=== PATIENT | female | born 1935 | race African-American/Black ===

== ENCOUNTER 2017-04-28 09:42 | Observation (INO) ==
[2017-04-28] MEDS ORDERED: DILTIAZEM 50 MG/10 ML VIAL IV STA (09:50)
[2017-04-28] MEDS ORDERED: DILTIAZEM INJ 100 MG in SODIUM CHLORIDE 0.9% 100 ML IV SCH (10:00)
--- NOTE | 2017-04-28 10:02 | Emergency Department Note ---
Slim Brar Brooke, am scribing for, and in the presence of, Atul Boogie MD 09:57 . Chuyita Brar James D, MD, personally performed the services described in this documentation, ascribed by Wilda Smalls in my presence, and it is both accurate and complete . Arrival - Arrival Limitations: No Limitations Source: Patient, Family (Son), EMS, RN Notes Reviewed Time Seen by Provider: 04/28/17 09:44 - History of Present Illness HPI Narrative: Patient is a 81 year old female brought into the ED by EMS, from dialysis, with c/o tachycardia. Patient was receiving her dialysis treatment when she started having chest pain. The nurses called EMS to bring her to the ED for the tachycardia. Patient says she is no longer having chest pain. She also denies having shortness or breath or any other pain. She says Dr. Acosta took her off of her heart medication. She says "it's been a while" since she was taken off of the medication. She is unable to recall the name of the medication but says she did take it once daily. Patient had been receiving her dialysis treatment for "42 minutes" before this happened. Her Primary Care Provider is Dr. Ledesma and her Wellhead Pumper is Dr. Mackay. She is not a smoker. Allergies/Adverse Reactions: Allergies Allergy/AdvReac Type Severity Reaction Status Date / Time Iodinated Contrast Media - Allergy Severe BLISTER Verified 10/10/16 16:16 Oral and Home Medications: Home Medications Medication Instructions Recorded Confirmed Type Allopurinol 100 mg PO DAILY 12/29/14 04/28/17 History glipiZIDE [Glipizide] 5 mg PO DAILY PRN 12/29/14 04/28/17 History Gabapentin Cap/Tab [Neurontin 300 mg PO BEDTIME 05/08/15 04/28/17 History Cap/Tab] Cinacalcet [Sensipar] 60 mg PO DAILY W/SUPPER 08/03/16 04/28/17 History Sevelamer Carbonate Tab [Renvela 800 mg PO TID W/MEALS 08/03/16 04/28/17 History Tab] Aspirin EC Tab 81 mg PO DAILY 08/31/16 04/28/17 History Amiodarone Tab [Cordarone Tab] 200 mg PO BID 10/10/16 04/28/17 History Review of System - Review of System 12 point system: reviewed and no additional remarkable complaints except as stated - Review of System Constitutional: Absent: fever Respiratory: Absent: respiratory distress Cardiovascular: Present: chest pain, other (tachycardia) Skin: Absent: rash Exam Vital Signs: Vital Signs Temperature 97.9 F 04/28/17 09:48 Pulse Rate 76 04/28/17 10:43 Respiratory Rate 18 04/28/17 10:43 Blood Pressure 119/56 04/28/17 10:43 O2 Sat by Pulse Oximetry 100 04/28/17 10:43 GENERAL: This is a well-nourished well-developed chronically ill-appearing black female in no apparent distress. VITAL SIGNS: Reviewed HEENT: Head is atraumatic and normocephalic. Pupils are equal round react to light. Extraocular movements are intact. Oropharynx is benign with moist mucous membranes. NECK: Neck is soft and supple without tenderness. There are no masses. There is no lymphadenopathy. LUNGS: Lungs are clear to auscultation. Chest rises symmetrically. There is no chest wall tenderness. CV: Heart is rapid regular without murmurs rubs or gallops. ABDOMEN: Abdomen is soft, nontender to palpation. There are no abdominal abnormal masses palpated. There is no organomegaly. Bowel sounds are present and active. SKIN: Skin is warm and dry. No rash. EXTREMITIES: Patient has full range of motion without tenderness. There is no pedal edema. NEUROLOGIC: Awake alert and oriented 4. Cranial nerves II through XII are grossly intact. Motor is 5 over 5 in all extremities bilaterally. Course Course Narrative: Cardizem bolus and infusion given to patient. Patient converted to normal sinus rhythm just prior to initiation of Cardizem bolus and infusion per - Consultations Consultation #1: Discussed with cardiology. Patient will be seen in the emergency department. Time: 11:37 Results - Labs CBC & BMP: 04/28/17 11:13 Lab Results: I have reviewed the patients labs - EKG EKG results: interpreted by JAY - Impressions EKG: Atrial flutter with a rate of 143, rapid ventricular response, low voltage QRS. - Diagnostic Findings Procedure: Chest x-ray: image reviewed by me (No infiltrates, no pleural effusions. Calcified right hilar node.) Critical Care Time Critical Care Time: No Disposition Clinical Impression: End stage renal disease on dialysis, Atrial fibrillation with RVR Case discussed with: patient, patient's family Disposition: Disch To Home/Self Care Condition: Stable
[2017-04-28] MEDS ORDERED: GLUCAGON 1 MG VIAL IM PRN (10:04)
[2017-04-28] MEDS ORDERED: DEXTROSE 50% 25 GM/50 ML VIAL IV PRN (10:04)
--- NOTE | 2017-04-28 10:22 | EKG Report ---
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
[2017-04-28] MEDS ORDERED: DILTIAZEM 50 MG/10 ML VIAL IV ONE (10:27)
[2017-04-28] MEDS ORDERED: DILTIAZEM 100 MG VIAL.ADD IV ONE (10:27)
[2017-04-28] MEDS ORDERED: SODIUM CHLORIDE 0.9% 100 ML IV ONE (10:28)
--- NOTE | 2017-04-28 11:06 | EKG Report ---
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
[2017-04-28 11:25] LABS: Basophils % 0.6 % (0.0-0.8); Eosinophils % 4.4 % (0.00-10.9); Hematocrit 34.6 VOL% (35.7-47.0); Hemoglobin 11.2 GM/DL (12.0-16.0); Immature Granulocytes % 0.2 %; Lymphocytes # 1.9 10*3/uL (1.4-4.0); Lymphocytes % 40.2 % (21.3-54.2); Mean Corpuscular HGB Conc 32.4 GM/DL (32-36); Mean Corpuscular Hemoglobin 32 PG (27-34); Mean Platelet Volume 10.4 FL (9.6-12.0); Monocytes # 0.6 10*3/uL (0.11-0.8); Monocytes % 12.6 % (1.7-12.7); Platelet Count 121 T/CUMM (130-400); Red Blood Count 3.46 MC/CUMM (3.8-5.5); Red Cell Distribution Width 14.8 % (9.3-17.3); White Blood Count 4.8 T/CUMM (4-12)
[2017-04-28 11:26] LABS: Eosinophils # 0.2 10*3/uL (0.0-0.87); Immature Granulocytes Absolute 0.01 #
[2017-04-28 11:36] LABS: INR 1.1; PT Patient Result 11.9 SECS; Partial Thromboplastin Time 30.8 SECS (0-40)
[2017-04-28 12:03] LABS: Alanine Aminotransferase 12 U/L (13-56); Alkaline Phosphatase 163 U/L (45-117); Aspartate Amino Transferase 20 U/L (0-37); Bilirubin,Total < 0.39 MG/DL (0.2-1.0); Blood Urea Nitrogen 21 MG/DL (7-18); Calcium 9.4 MG/DL (8.5-10.1); Glucose 145 MG/DL (74-106); Osmolality,Calculated 280.7 MOS/KG (273-304); Potassium 3.8 MMOL/L (3.5-5.1); Sodium 138 MMOL/L (136-145); Total Protein 5.8 G/DL (6.4-8.3); Troponin I Only 0.022 NG/ML (0.00-0.045)
--- NOTE | 2017-04-28 12:30 | XRay Report ---
XR chest 1V Indication: Shortness of breath Comparison: 10 November 2016 Findings: The heart and mediastinum are stable in size and configuration. Right lower lung nodules and calcified lymph nodes in the right hilum are present similar to previous exam. The pulmonary vascularity is normal in caliber. No lung infiltrates, effusions, pneumothorax or other abnormality is demonstrated. Impression: No evidence of acute process or interval change. PROCEDURE INTERPRETED AT [facility] DEPARTMENT OF RADIOLOGY Final Report Signed by: Dr. Perry Reza
--- NOTE | 2017-04-28 14:53 | Cardiology History & Physical ---
Assessment and Plan - Time spent with patient Time spent with patient: Greater than 30 minutes (1) Hypertension Status: Chronic Assessment and plan: SEE PLAN OF CARE LISTED BELOW Current Visit: Yes (2) Dyslipidemia Status: Chronic Assessment and plan: SEE PLAN OF CARE LISTED BELOW Current Visit: Yes (3) CAD (coronary artery disease) Status: Chronic Assessment and plan: SEE PLAN OF CARE LISTED BELOW Current Visit: Yes (4) Diabetes mellitus Status: Chronic Assessment and plan: SEE PLAN OF CARE LISTED BELOW Current Visit: No (5) Physical debility Status: Chronic Assessment and plan: SEE PLAN OF CARE LISTED BELOW Current Visit: No (6) End stage renal disease on dialysis Status: Chronic Assessment and plan: SEE PLAN OF CARE LISTED BELOW Current Visit: Yes (7) Atrial fibrillation with RVR Status: Resolved Assessment and plan: SEE PLAN OF CARE LISTED BELOW Current Visit: Yes History of Present Illness Chief complaint: Atrial fibrillation with rapid ventricular response 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 Patel, 81BF, routinely followed by Dr. Acosta. 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 History of end-stage renal disease (dialysis Tuesday, and Tuesday), paroxysmal atrial fibrillation and CHF. This morning, as patient was beginning dialysis, experienced complaints of tachycardia. She was noted to have heart rates in the 140s and was brought to the emergency department for further evaluation. She was found to be in atrial fibrillation with rapid ventricular response and possible AVNRT. Patient converted back to normal sinus rhythm after she was given IV Diltiazem. Patient had previously been taking Amiodarone 200 mg orally twice daily however she experienced bradycardia and the medication was stopped. She has been maintained on Aspirin only as she has a prior history of significant bleeding per Dr. Acosta's clinic notes. She continues to have paroxysms of heart racing but not to the extent to which he experienced this morning. Most recent echocardiogram November 2016 with the following: EF 55%, grade 1 diastolic dysfunction, concentric LVH, mild. Left atrial enlargement severe, PAP 45 mmHg assuming RAP 3 mmHg. At this time, we will admit patient to our telemetry unit and monitor her rhythm. Discontinue use of IV Cardizem and start Metoprolol 25 mg orally twice daily. Will restart her Amiodarone 200 mg orally twice daily and monitor heart rate and rhythm closely. In the past, she has had significant bleeding while taking anticoagulation and will continue aspirin for now. If patient fails medical treatment and experiences severe bradycardia she may be a candidate for permanent pacemaker implantation versus AV nnamdi ablation. We will consult Dr. Lassiter for management of her end-stage renal disease. She did not complete and in fact only underwent about 30 minutes of her dialysis today. Will further discuss with Dr. Angela and await additional recommendations. IMPRESSION/PLAN: 1. ATRIAL FIBRILLATION WITH RVR/AVNRT - currently in NSR. Will discontinue IV Cardizem and start betablocker and Amiodorone. Aspirin for stroke prevention at this time. Continue daily CBC. Apparently, she has a significant history of bleeding in the past while taking anticoagulation. CHADVASC SCORE 7. 2. HYPERTENSION - adjust medications accordingly during hospital stay. 3. DYSLIPIDEMIA - lipid profile in the morning. Continue lipid-lowering agent 4. DIABETES - adjust sliding scale during hospital stay. 5. CAD - history of old VT. No complaints of angina at this time. 6. ESRD - consult Dr. Lassiter. Dialyzes Tuesday, and Saturdays. Did not complete dialysis today Home Medications Medication Instructions Recorded Confirmed Type Allopurinol 100 mg PO DAILY 12/29/14 04/28/17 History glipiZIDE [Glipizide] 5 mg PO DAILY PRN 12/29/14 04/28/17 History Gabapentin Cap/Tab [Neurontin 300 mg PO BEDTIME 05/08/15 04/28/17 History Cap/Tab] Cinacalcet [Sensipar] 60 mg PO DAILY W/SUPPER 08/03/16 04/28/17 History Sevelamer Carbonate Tab [Renvela 800 mg PO TID W/MEALS 08/03/16 04/28/17 History Tab] Aspirin EC Tab 81 mg PO DAILY 08/31/16 04/28/17 History Amiodarone Tab [Cordarone Tab] 200 mg PO BID 10/10/16 04/28/17 History Allergies Allergy/AdvReac Type Severity Reaction Status Date / Time Iodinated Contrast Media - Allergy Severe BLISTER Verified 10/10/16 16:16 Oral and Review of systems: REVIEW OF SYSTEMS: - Constitutional Constitutional: Present: Fatigue. Absent: syncope, anorexia, night sweats - EENT Eyes: Absent: blurry vision, loss of vision, diplopia Ears: Absent: decreased hearing, ear pain, ear discharge - Cardiovascular Cardiovascular: Denies: chest pain with exertion, dyspnea on exertion, edema. Frequent palpitations. Absent: chest pain with deep breath, claudication - Respiratory Respiratory: Denies: ZABALA, cough. Absent: wheezing, hemoptysis, change in phlegm color - Gastrointestinal Gastrointestinal: Denies: constipation. Absent: abdominal pain, hematemesis, hematochezia, melena, change in bowel habits, nausea - Genitourinary Genitourinary: Absent: difficulty urinating, dysuria, urinary hesitancy, flank pain - Musculoskeletal Musculoskeletal: Present: back pain Absent: joint swelling, muscle cramps, muscle weakness - Neurological Neurological: Present: normal gait without frequent falls. Absent: dizziness, hemiparesis - Psychiatric Psychiatric: Absent: anxiety, depression, difficulty concentrating - Endocrine Endocrine: Present: fatigue. Absent: cold intolerance, heat intolerance, polyuria, polyphagia, polydipsia - Hematologic/Lymphatic Hematologic/Lymphatic: Present: easy bruising. Absent: easy bleeding -Integumentary Integumentary: Absent: lesions, rashes, skin breakdown Medical,Surgical,& Family Hx - Medical History Cardio: History of: CHF, Hypertension, [place], Cardiovascular Problems HEENT: History of: Eye Problem (glasses), Dental Problems (complete dentures), Glaucoma Endocrine: History of: Diabetes Mellitus (NIDDM), Dyslipidemia, Thyroid Disorder Rheumatology: History of;: Gout, Rheumatoid Arthritis Renal: History of: Dialysis, Renal Failure (does not produce urine) Gastrointestinal: History of: Diverticulitis/ Diverticulosis, GERD, GI Problems (" a lot of heart burn") Musculoskeletal: History of: Musculoskeletal Problems (arthritis) Reproductive: History of: Breast Cancer (1999) Other: History of: Cancer - Surgical History Thoracic Surgeries: Patient denies;: Organ Transplant HEENT Surgeries: Surgical HX of: Eye Surgery (2010 2011) Abdominal Surgeries: Surgical HX of: Colonoscopy Reproductive Surgeries: Surgical HX of;: Breast Surgery (double mastecomy), Hysterectomy (over 50 years ago) Patient denies;: Genitourinary Surgery - Family History Family History: Reports;: Family Cancer (2 sisters, 1 brother), Family Diabetes (mom, dad, sisters, brothers), Family Heart Disease (son, mom), Family Hypertension (mom,dad, sister, brothers) Denies;: Family Anesthesia Reaction, Family Psychiatric Problems, Family Stroke - Social History Smoking Status: Never smoker Have you smoked in the last 12 months: No Frequency of Alcohol Use: None Type of Drug Use: None Cardiology Physical Exam - Constitutional Vitals: Vital Signs Temp Pulse Resp BP Pulse Ox 97.9 F 71 16 146/57 99 04/28/17 09:48 04/28/17 11:45 04/28/17 11:45 04/28/17 11:45 04/28/17 11:45 Intake and Output 04/27/17 04/28/17 04/28/17 23:59 07:59 15:59 Intake Total 100 / 100 Balance 100 / 100 Intake: Intake - Additional IV 100 / 100 Volume (mLs) Left Wrist 100 / 100 Other: Weight 83.915 kg Patient Weight 04/28/17 23:59 Weight 83.915 kg Exam: General: [Appears well with no apparent distress.] [Pleasant and cooperative. ] [Appears comfortable.] HEENT: [Bilateral arcus noted, normocephalic, atraumatic. Mucous membranes moist. No jaundice noted. Conjunctiva moist and clear, sclerae anicteric. Poor dentition] Neck: No obvious JVD/HJR, no thyromegaly or lymphadenopathy noted. No carotid bruit appreciated Cardiac: [Regular rate and rhythm.] [No murmur, rub or gallop.] Lungs: [Clear to auscultation without accessory muscle use to assist the respiratory pattern.] Not requiring oxygen Abdomen: Soft, bowel sounds normoactive. Nontender and nondistended. No abdominal bruit or thrill noted. No masses noted. Musculoskeletal: No fluid collection. Decreased range of motion is noted. Extremities: No clubbing, cyanosis noted. [ No edema noted.] Upper extremity pulses 2+. Lower extremity pulses 1+. Capillary refill less than 3 seconds. Skin: No unusual lesions or rashes. No skin breakdown appreciated. Neuro: Awake, alert and oriented 3. Moves all extremities well without hemiparesis or paralysis. No essential tremor is appreciated. Result/EKG - Labs CBC & BMP: 04/28/17 11:13 04/28/17 11:13 Lab Results: I have reviewed the past 24 hour labs Labs: Laboratory Results - last 24 hr 04/28/17 04/28/17 04/28/17 11:13 11:13 11:13 WBC 4.8 RBC 3.46 L Hgb 11.2 L Hct 34.6 L MCV 100.0 MCH 32 MCHC 32.4 RDW 14.8 Plt Count 121 L MPV 10.4 Neut % (Auto) 42.0 Lymph % (Auto) 40.2 [place] % (Auto) 12.6 Eos % (Auto) 4.4 Baso % (Auto) 0.6 Neut # (Auto) 2.0 Lymph # (Auto) 1.9 [place] # (Auto) 0.6 Eos # (Auto) 0.2 Baso # (Auto) 0.0 Immature Gran % 0.2 Nucleated RBC % 0.0 Immature Gran # 0.01 Nucleated RBCs # 0.00 Immature Plt Fraction 0.0 INR 1.1 PT Patient/Control Mix 11.9 Circ Anticoag PTT 30.8 Sodium Potassium Chloride Carbon Dioxide Anion Gap BUN Creatinine GFR Calculation BUN/Creatinine Ratio Glucose Calculated Osmolality Calcium Total Bilirubin AST ALT Alkaline Phosphatase Troponin I Total Protein Albumin Globulin Albumin/Globulin Ratio Free T4 0.99 TSH 3rd Generation 04/28/17 11:13 WBC RBC Hgb Hct MCV MCH MCHC RDW Plt Count MPV Neut % (Auto) Lymph % (Auto) [place] % (Auto) Eos % (Auto) Baso % (Auto) Neut # (Auto) Lymph # (Auto) [place] # (Auto) Eos # (Auto) Baso # (Auto) Immature Gran % Nucleated RBC % Immature Gran # Nucleated RBCs # Immature Plt Fraction INR PT Patient/Control Mix Circ Anticoag PTT Sodium 138 Potassium 3.8 Chloride 102 Carbon Dioxide 27 Anion Gap 12.8 BUN 21 H Creatinine 5.90 H GFR Calculation 8 BUN/Creatinine Ratio 3.00 L Glucose 145 H Calculated Osmolality 280.7 Calcium 9.4 Total Bilirubin < 0.39 AST 20 ALT 12 L Alkaline Phosphatase 163 H Troponin I 0.022 Total Protein 5.8 L Albumin 3.0 L Globulin 2.8 Albumin/Globulin Ratio 1.0 L Free T4 TSH 3rd Generation 1.310 - Diagnostic Findings Procedure: Chest x-ray: report reviewed by me - EKG EKG results: interpreted by me EKG shows: sinus rhythm, atrial fibrillation (Atrial flutter versus AVNRT)
[2017-04-28] MEDS ORDERED: ONDANSETRON 4 MG/2 ML VIAL IV PRN (14:57)
[2017-04-28] MEDS ORDERED: MAGNESIUM SULF RIDER 4 GM in PREMIX 1 EACH IV PRN (14:57)
[2017-04-28] MEDS ORDERED: ACETAMINOPHEN 325 MG TABLET PO PRN (14:57)
[2017-04-28] MEDS ORDERED: DOCUSATE SODIUM 100 MG CAPSULE PO PRN (14:57)
[2017-04-28] MEDS ORDERED: ZALEPLON 5 MG CAPSULE PO PRN (14:57)
[2017-04-28] MEDS ORDERED: MAGNESIUM SULF RIDER 2 GM in PREMIX 1 EACH IV PRN (14:57)
[2017-04-28] MEDS ORDERED: glipiZIDE 5 MG TABLET PO PRN (15:02)
--- NOTE | 2017-04-28 18:28 | Nephrology Consult Note ---
History of Present Illness Chief complaint: End-stage renal disease History of present illness: Ms. Patel is a 81 year old female with a history of end-stage renal disease due to hypertension and diabetes currently dialyzes on a Tuesday schedule at the [place] dialysis unit. The patient presented to her dialysis unit today during treatment she started to have heart rate that was racing associated with chest discomfort. She was feeling weak no shortness of breath. Patient was transitioned to an emergency room department. Pain she has been reevaluated answer currently heart rate has been in the 70s and she has been in a sinus mechanism. She has had no change in her medications. Nephrology is been consulted for renal issues. Home Medications Medication Instructions Recorded Confirmed Type Allopurinol 100 mg PO DAILY 12/29/14 04/28/17 History glipiZIDE [Glipizide] 5 mg PO DAILY PRN 12/29/14 04/28/17 History Gabapentin Cap/Tab [Neurontin 300 mg PO BEDTIME 05/08/15 04/28/17 History Cap/Tab] Cinacalcet [Sensipar] 60 mg PO DAILY W/SUPPER 08/03/16 04/28/17 History Sevelamer Carbonate Tab [Renvela 800 mg PO TID W/MEALS 08/03/16 04/28/17 History Tab] Aspirin EC Tab 81 mg PO DAILY 08/31/16 04/28/17 History Amiodarone Tab [Cordarone Tab] 200 mg PO BID 10/10/16 04/28/17 History Allergies Allergy/AdvReac Type Severity Reaction Status Date / Time Iodinated Contrast Media - Allergy Severe BLISTER Verified 10/10/16 16:16 Oral and Medical,Surgical,& Family Hx - Medical History Cardio: History of: Cardiac Dysrhythmia (AFIB), CHF, CAD, Hypertension, [place], Cardiovascular Problems HEENT: History of: Eye Problem (glasses), Dental Problems (complete dentures), Glaucoma Endocrine: History of: Diabetes Mellitus (NIDDM), Dyslipidemia, Thyroid Disorder Rheumatology: History of;: Gout, Rheumatoid Arthritis Renal: History of: Dialysis, Renal Failure (does not produce urine) Gastrointestinal: History of: Diverticulitis/ Diverticulosis, GERD, GI Problems (" a lot of heart burn") Musculoskeletal: History of: Musculoskeletal Problems (arthritis) Reproductive: History of: Breast Cancer (1999) Other: History of: Cancer - Surgical History Cardiac Surgeries: Sugical HX of: Femoral-Popliteal Bypass Graft Thoracic Surgeries: Patient denies;: Organ Transplant HEENT Surgeries: Surgical HX of: Eye Surgery (2010 2011) Abdominal Surgeries: Surgical HX of: Colonoscopy Reproductive Surgeries: Surgical HX of;: Breast Surgery (double mastecomy), Hysterectomy (over 50 years ago) Patient denies;: Genitourinary Surgery - Family History Family History: Reports;: Family Cancer (2 sisters, 1 brother), Family Diabetes (mom, dad, sisters, brothers), Family Heart Disease (son, mom), Family Hypertension (mom,dad, sister, brothers) Denies;: Family Anesthesia Reaction, Family Psychiatric Problems, Family Stroke - Social History Smoking Status: Never smoker Frequency of Alcohol Use: None Type of Drug Use: None Review of Systems Constitutional: no chills, no excessive sweating, no fatigue, no fever(s) Gastrointestinal: no abdominal pain, no change in bowel habits Musculoskeletal: no arthralgias Exam - Vital Signs Vital signs: Period Temp Pulse Resp BP Sys/Sanchez Pulse Ox Last 24 Hr 97.9 F-97.9 F 65-144 14-25 92-146/49-57 97-100 - General Appearance General appearance: well-developed, well-nourished Neck: no JVD Respiratory: clear Cardiology: regular rate, regular rhythm Gastrointestinal: normoactive bowel sounds Integumentary: no rash Neurologic: alert and oriented x3, CN 3-12 intact Musculoskeletal: no clubbing Psychiatric: mood/affect appropriate, cooperative Results - Labs CBC & BMP: 04/28/17 11:13 04/28/17 11:13 Assessment and Plan (1) Diabetes Status: Chronic Current Visit: No Qualifiers: Diabetes mellitus type: type 2 Chronic kidney disease stage: on chronic dialysis (2) End stage renal disease Status: Resolved Current Visit: No (3) History of paroxysmal supraventricular tachycardia Status: Resolved Current Visit: No (4) Diabetes mellitus Status: Chronic Current Visit: No Qualifiers: Diabetes mellitus type: type 2 Chronic kidney disease stage: on chronic dialysis (5) Hypertension Status: Chronic Current Visit: Yes (6) Dyslipidemia Status: Chronic Current Visit: Yes
[2017-04-28] MEDS: METOPROLOL TARTRATE 25 MG TABLET PO SCH ×2 (19:29→21:42)
[2017-04-28] MEDS: AMIODARONE 200 MG TABLET PO SCH ×2 (19:29→21:42)
[2017-04-28] MEDS: PANTOPRAZOLE 40 MG TABLET PO SCH (20:31)
[2017-04-28] MEDS: SEVELAMER CARBONATE 800 MG TABLET PO SCH (20:31)
[2017-04-28] MEDS: CINACALCET 30 MG TABLET PO SCH (20:31)
[2017-04-28] MEDS ORDERED: GABAPENTIN 300 MG CAPSULE PO SCH (21:00)
[2017-04-29 04:19] LABS: Basophils % 0.5 % (0.0-0.8); Eosinophils # 0.2 10*3/uL (0.0-0.87); Eosinophils % 5.8 % (0.00-10.9); Hematocrit 31.3 VOL% (35.7-47.0); Immature Granulocytes % 0.3 %; Immature Granulocytes Absolute 0.01 #; Lymphocytes # 1.7 10*3/uL (1.4-4.0); Lymphocytes % 42.9 % (21.3-54.2); Mean Corpuscular HGB Conc 31.9 GM/DL (32-36); Mean Corpuscular Hemoglobin 32 PG (27-34); Mean Corpuscular Volume 99.1 FL (87-102); Mean Platelet Volume 10.5 FL (9.6-12.0); Monocytes # 0.5 10*3/uL (0.11-0.8); Monocytes % 12.4 % (1.7-12.7); Neutrophils # 1.5 10*3/uL (1.4-7.4); Neutrophils % 38.1 % (38.7-73.9); Platelet Count 109 T/CUMM (130-400); Red Blood Count 3.16 MC/CUMM (3.8-5.5); Red Cell Distribution Width 14.8 % (9.3-17.3); White Blood Count 3.9 T/CUMM (4-12)
[2017-04-29 04:57] LABS: Albumin 2.7 G/DL (3.4-5.0); Bilirubin,Total 0.7 MG/DL (0.2-1.0); Osmolality,Calculated 281.5 MOS/KG (273-304); Potassium 3.7 MMOL/L (3.5-5.1)
[2017-04-29 05:34] LABS: Eosinophils 4 % (0-10); Hypochromasia 1+; Lymphocytes 46 % (20-55); Segmented Neutrophils 38 % (50-85); Total Cells Counted 100
[2017-04-29 05:35] LABS: Macrocytosis Slight; Platelet Estimate Decreased
[2017-04-29] MEDS: SEVELAMER CARBONATE 800 MG TABLET PO SCH ×3 (08:35→17:01)
[2017-04-29] MEDS: PANTOPRAZOLE 40 MG TABLET PO SCH (08:36)
[2017-04-29] MEDS: METOPROLOL TARTRATE 25 MG TABLET PO SCH (08:37)
[2017-04-29] MEDS: AMIODARONE 200 MG TABLET PO SCH (08:37)
[2017-04-29] MEDS ORDERED: ALLOPURINOL 100 MG TABLET PO SCH (09:00)
[2017-04-29] MEDS ORDERED: ASPIRIN EC 81 MG TABLET PO SCH (09:00)
--- NOTE | 2017-04-29 09:26 | Nephrology Progress Note ---
Nephrology - PN: Subj Interval history: Patient is resting comfortably no acute changes. Hemodynamically stable through the night. No shortness of breath or chest pain. Exam (PN)-Nephrology - Vital Signs Vital signs: Period Temp Pulse Resp BP Sys/Sanchez Pulse Ox Last 24 Hr 97.9 F-99.1 F 63-144 14-25 92-146/49-75 89-100 - General Appearance General appearance: well-developed, well-nourished EENT: ATNC Neck: supple Respiratory: clear Cardiology: regular rate, regular rhythm Gastrointestinal: normoactive bowel sounds, no tenderness Neurologic: alert and oriented x3 Psychiatric: mood/affect appropriate - Lab 04/29/17 03:31 04/29/17 03:31 Most recent lab results Calcium 9.0 MG/DL (8.5-10.1) 04/29/17 03:31 Assessment and Plan (1) Diabetes Status: Chronic Current Visit: No Qualifiers: Diabetes mellitus type: type 2 Chronic kidney disease stage: on chronic dialysis (2) End stage renal disease Status: Resolved Current Visit: No (3) History of paroxysmal supraventricular tachycardia Status: Resolved Current Visit: No (4) Diabetes mellitus Status: Chronic Current Visit: No Qualifiers: Diabetes mellitus type: type 2 Chronic kidney disease stage: on chronic dialysis (5) Hypertension Status: Chronic Current Visit: Yes Qualifiers: Hypertension type: essential hypertension Qualified Code(s): I10 - Essential (primary) hypertension (6) Dyslipidemia Status: Chronic Current Visit: Yes
[2017-04-29 11:33] VITALS: BP 109/53
--- NOTE | 2017-04-29 12:02 | EKG Report ---
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
--- NOTE | 2017-04-29 12:26 | Discharge Summary ---
Hospital Course - Hospital Course Hospital Course: HIDE WASHER: DR. ACOSTA SUMMARY: Ms. Patel, 81BF, routinely followed by Dr. Acosta. Risk factors include: Advanced age, ASHD (old [place]) hypertension, dyslipidemia, diabetes, sedentary lifestyle and obesity. History of end-stage renal disease (dialysis Tuesday, and Tuesday), paroxysmal atrial fibrillation and CHF. 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 Dr. Cedeño saw patient in the emergency room. She converted back to normal sinus rhythm. Overnight, she was transitioned to our telemetry unit. In the past, patient had been taking Amiodarone 200 mg orally daily however experienced bradycardia in the medication was discontinued. She was rechallenged while hospitalized and no bradycardia noted. Patient is not a candidate for anticoagulation due to prior history of severe bleeding. Patient would like to be discharged home today. Dr. Angela has seen and evaluated patient. Dr. Lassiter has seen and evaluated patient. We will arrange for disharge home today. She will need a Holter monitor to evaluate her rhythm and rate overnight and we will arrange for this prior to discharge. She patient began to experience sick sinus syndrome, may be a candidate for pacemaker versus ablation. She will be given a 1-2 week follow-up with Dr. Acosta. At that visit the following will be obtained: EKG. Cardiac discharge medications include the following: Aspirin 81 mg orally daily Amiodarone 200 mg orally twice daily Metoprolol tartrate 25 mg orally twice daily She will resume her other noncardiac preadmission medications. - Time spent with patient Time with patient DS: Greater than 30 minutes Diagnosis - Discharge Diagnosis (1) Hypertension Status: Chronic (2) Dyslipidemia Status: Chronic (3) CAD (coronary artery disease) Status: Chronic (4) Diabetes mellitus Status: Chronic (5) Physical debility Status: Chronic (6) End stage renal disease on dialysis Status: Chronic (7) Atrial fibrillation with RVR Status: Resolved Specialty Discharge - Follow Up or Referrals Follow up with: Omar Acosta MD [Physician] - (1-2 weeks. EKG) Discharge Plan - Discharge Data Disposition: Disch To Home/Self Care Condition at Discharge: Stable Discharge Diet: heart healthy Activity: resume usual activities as tolerated Hygiene: no restrictions Weight Bearing at Discharge: full weight bearing Driving: not until seen by doctor Contact your physician if you experience:: fever over 101, Difficulty voiding, Redness or swelling, Nausea/Vomiting, Shortness of breath, Bleeding, pain uncontrolled by pain medications - Discharge Medications New Metoprolol Tartrate Tab [Lopressor Tab] 25 mg PO BID #60 tablet Continue Allopurinol 100 mg PO DAILY glipiZIDE [Glipizide] 5 mg PO DAILY PRN PRN Reason: Glucose Management Gabapentin Cap/Tab [Neurontin Cap/Tab] 300 mg PO BEDTIME Amiodarone Tab [Cordarone Tab] 200 mg PO BID #60 Sevelamer Carbonate Tab [Renvela Tab] 800 mg PO TID W/MEALS Cinacalcet [Sensipar] 60 mg PO DAILY W/SUPPER Aspirin EC Tab 81 mg PO DAILY - Follow Up or Referral - Forms/Instructions Additional Discharge Instructions: Please obtain Holter monitor from heart station and apply prior to discharge today. Exam - Constitutional Vitals: Period Temp Pulse Resp BP Sys/Sanchez Pulse Ox Last 24 Hr 97.9 F-99.1 F 60-91 14-25 101-131/49-75 89-100 Exam: General: [Appears well with no apparent distress.] [Pleasant and cooperative. ] [Appears comfortable.] HEENT: [PERRL, normocephalic, atraumatic. Mucous membranes moist. No jaundice noted. Conjunctiva moist and clear, sclerae anicteric] Neck: No JVD/HJR, no thyromegaly or lymphadenopathy noted. No carotid bruit appreciated Cardiac: [Regular rate and rhythm.] [No murmur rub or gallop.] Lungs: [Clear to auscultation without accessory muscle use to assist the respiratory pattern.] Not requiring oxygen Abdomen: Soft, bowel sounds normoactive. Nontender and nondistended. No abdominal bruit or thrill noted. No masses noted. Musculoskeletal: No fluid collection. Decreased range of motion is noted. Extremities: No clubbing, cyanosis noted. [ No edema noted.] Upper extremity pulses 2+. Lower extremity pulses 2+. Capillary refill less than 3 seconds. Skin: No unusual lesions or rashes. No skin breakdown appreciated. Neuro: Awake, alert and oriented 3. Moves all extremities well without hemiparesis or paralysis. No essential tremor is appreciated. Discharge Results Procedures and tests throughout hospitalization: Pending Orders 04/28/17 14:59 Urine Culture Routine Labs on day of discharge: Labs from last 24 hours 04/29/17 04/29/17 04/29/17 12:08 08:03 03:31 WBC RBC Hgb Hct MCV MCH MCHC RDW Plt Count MPV Neut % (Auto) Lymph % (Auto) [place] % (Auto) Eos % (Auto) Baso % (Auto) Neut # (Auto) Lymph # (Auto) [place] # (Auto) Eos # (Auto) Baso # (Auto) Total Counted Immature Gran % Nucleated RBC % Immature Gran # Segmented Neutrophils Lymphocytes Monocytes Eosinophils Nucleated RBCs # Platelet Estimate Immature Plt Fraction Hypochromasia Macrocytosis Sodium 139 Potassium 3.7 Chloride 103 Carbon Dioxide 29 Anion Gap 10.7 BUN 26 H Creatinine 7.00 H GFR Calculation 6 BUN/Creatinine Ratio 3.00 L Glucose 98 POC Glucose 156 H 109 H Calculated Osmolality 281.5 Calcium 9.0 Total Bilirubin 0.70 AST 15 ALT 11 L Alkaline Phosphatase 137 H Total Protein 5.0 L Albumin 2.7 L Globulin 2.3 Albumin/Globulin Ratio 1.1 Triglycerides 115 Cholesterol 108 LDL Cholesterol 39.0 VLDL Cholesterol 23.0 HDL Cholesterol 36 L Heart Disease Risk Ratio 3.00 04/29/17 04/28/17 03:31 21:07 WBC 3.9 L RBC 3.16 L Hgb 10.0 L Hct 31.3 L MCV 99.1 MCH 32 MCHC 31.9 L RDW 14.8 Plt Count 109 L MPV 10.5 Neut % (Auto) 38.1 L Lymph % (Auto) 42.9 [place] % (Auto) 12.4 Eos % (Auto) 5.8 Baso % (Auto) 0.5 Neut # (Auto) 1.5 Lymph # (Auto) 1.7 Lincoln # (Auto) 0.5 Eos # (Auto) 0.2 Baso # (Auto) 0.0 Total Counted 100 Immature Gran % 0.3 Nucleated RBC % 0.0 Immature Gran # 0.01 Segmented Neutrophils 38 L Lymphocytes 46 Monocytes 12 Eosinophils 4 Nucleated RBCs # 0.00 Platelet Estimate Decreased Immature Plt Fraction 0.0 Hypochromasia 1+ Macrocytosis Slight Sodium Potassium Chloride Carbon Dioxide Anion Gap BUN Creatinine GFR Calculation BUN/Creatinine Ratio Glucose POC Glucose 200 H Calculated Osmolality Calcium Total Bilirubin AST ALT Alkaline Phosphatase Total Protein Albumin Globulin Albumin/Globulin Ratio Triglycerides Cholesterol LDL Cholesterol VLDL Cholesterol HDL Cholesterol Heart Disease Risk Ratio - Imaging and Cardiology Cardiology Procedure: report reviewed by me DS: Provider Date of admission: 04/28/17 14:57 Primary care physician: . No PCP Attending physician on admission: Pardeep Angela MD Consults: 04/28/17 11:12 Consult to Physician [CONS] Routine Comment: a flutter Consulting Provider: Pardeep Angela 04/28/17 15:03 Consult to Physician [CONS] Routine Comment: ESRD needing HD (did not complete HD today) Consulting Provider: Rolando Lassiter Jr. Person Notified: dixon Date Notified: 04/29/17 Time Notified: 09:25 04/28/17 18:55 Consult to Pastoral Services [CONS] Routine Comment: Pastoral Screen: Request Shirt Operator Visit Pastoral Screen Source of Request: Patient Discharging clinician: Peg Mittal NP Expected date of discharge: 04/29/17
--- NOTE | 2017-04-29 13:51 | Dialysis Note ---
Dialysis Note - Dialysis Note Ms. cunningham is seen during her hemodialysis. She stable and tolerating it well. She is lying flat and in no distress.
--- NOTE | 2017-04-29 16:07 | Event Note ---
Interviewed and examined the patient personally. Discussed findings with the nurse practitioner. I agree with the assessment and plan, with additions as below. See the MANAGER [employer]LL[employer] note separately. I could not edit the discharge summary. 81-year-old black female, followed by Dr. Acosta. She was admitted due to episode of sustained tachycardia. On admission, in the ER she was initially in regular narrow QRS SVT, then, typical atrial flutter, now she is back in sinus rhythm. No significant conversion pause. Review of her prior EKGs shows episodes of sinus rhythm, sinus bradycardia arrhythmia and episode of junctional bradycardia. -Inpatient dialysis was performed, without complications. Appreciate nephrology input -Continue amiodarone 200 mg twice daily, metoprolol 25 mg twice daily. -If develops symptomatic tachybradycardia, pacemaker implant may be considered. If the flutter remains difficult to control and recurrent, ablation is an option. Her CKD limits antiarrhythmic options. -She was not a candidate for anticoagulation in the past -FU with dr. Acosta
[2017-04-29] MEDS: CINACALCET 30 MG TABLET PO SCH (17:01)
== END 2017-04-29 17:49 | disposition home or self-care (01) ==
LOC: EDBD → EDUNIT# → N.ED 09:42 → N.EDINP 09:42 → N.TELEN 16:28
PROVIDERS: ADMIT Internal Medicine Clinical Cardiac Electrophysiology; ATTEND Internal Medicine Clinical Cardiac Electrophysiology

== ENCOUNTER 2019-04-14 13:57 | Inpatient (IN) ==
[2019-04-14] MEDS ORDERED: ADENOSINE 6 MG/2 ML VIAL ONE (14:26)
[2019-04-14] MEDS ORDERED: ADENOSINE 6 MG/2 ML VIAL IV STA (14:31)
[2019-04-14] MEDS ORDERED: METOPROLOL TARTRATE 5 MG/5 ML VIAL IV ONE (14:39)
[2019-04-14] MEDS ORDERED: DILTIAZEM 25 MG/5 ML VIAL IV ONE (14:58)
[2019-04-14 15:45] LABS: Basophils % 0.5 % (0.0-0.8); Eosinophils # 0.2 10*3/uL (0.0-0.87); Hematocrit 39.9 VOL% (35.7-47.0); Hemoglobin 12.3 GM/DL (12.0-16.0); Immature Granulocytes % 0.2 %; Immature Granulocytes Absolute 0.01 #; Lymphocytes # 1.8 10*3/uL (1.4-4.0); Lymphocytes % 41.6 % (21.3-54.2); Mean Corpuscular HGB Conc 30.8 GM/DL (32-36); Mean Corpuscular Volume 100.8 FL (87-102); Mean Platelet Volume 10.3 FL (9.6-12.0); Monocytes % 12.1 % (1.7-12.7); Neutrophils % 41.6 % (38.7-73.9); Platelet Count 110 T/CUMM (130-400); Red Blood Count 3.96 MC/CUMM (3.8-5.5); Red Cell Distribution Width 14.4 % (9.3-17.3); White Blood Count 4.2 T/CUMM (4-12)
[2019-04-14 15:55] LABS: INR 1.1; PT Patient Result 11.4 SECS (9.6-12.2); Partial Thromboplastin Time 29.5 SECS (20.8-36.0)
[2019-04-14 16:06] LABS: Alanine Aminotransferase 14 U/L (13-56); Albumin 2.9 G/DL (3.4-5.0); Alkaline Phosphatase 240 U/L (45-117); Aspartate Amino Transferase 21 U/L (0-37); Bilirubin,Total < 0.39 MG/DL (0.2-1.0); Blood Urea Nitrogen 15 MG/DL (7-18); Calcium 9.1 MG/DL (8.5-10.1); Glucose 99 MG/DL (74-106); Osmolality,Calculated 279.4 MOS/KG (273-304); Total Protein 6.3 G/DL (6.4-8.3); Troponin I 0.032 NG/ML (0.00-0.045)
[2019-04-14] MEDS ORDERED: POTASSIUM CHLORIDE 20 MEQ TABLET PO STA (16:34)
[2019-04-14] MEDS ORDERED: ACETAMINOPHEN 325 MG TABLET PO PRN (17:29)
[2019-04-14] MEDS ORDERED: BISACODYL 5 MG TABLET PO PRN (17:29)
[2019-04-14] MEDS ORDERED: ONDANSETRON 4 MG/2 ML VIAL IV PRN (17:29)
[2019-04-14] MEDS ORDERED: DOCUSATE SODIUM 100 MG CAPSULE PO PRN (17:29)
[2019-04-14] MEDS ORDERED: DEXTROSE 10% 250 ML BAG IV PRN (17:34)
[2019-04-14] MEDS ORDERED: GLUCAGON 1 MG VIAL IM PRN (17:34)
[2019-04-14 17:58] LABS: Thyroid Stimulating Hormone 0.997 uIU/ml (0.358-3.74)
[2019-04-14] MEDS ORDERED: LORATADINE 10 MG TABLET PO PRN (20:11)
[2019-04-14] MEDS: SEVELAMER CARBONATE 800 MG TABLET PO SCH (22:01)
[2019-04-14] MEDS: GABAPENTIN 300 MG CAPSULE PO SCH (22:01)
[2019-04-14] MEDS: AMIODARONE 200 MG TABLET PO SCH (22:01)
[2019-04-14] MEDS: DORZOLAMIDE/TIMOLOL OPH SOLN 10 ML BOTTLE BOTH EYES SCH (22:01)
[2019-04-14] MEDS: TRAVOPROST 0.004% OPH SOLN 2.5 ML BOTTLE BOTH EYES SCH (22:01)
[2019-04-14] MEDS: INSULIN REGULAR 100 UNIT/ML SUBCUT SCH (22:49)
[2019-04-15 05:47] LABS: Basophils % 0.9 % (0.0-0.8); Eosinophils # 0.2 10*3/uL (0.0-0.87); Eosinophils % 4.9 % (0.00-10.9); Hematocrit 36.4 VOL% (35.7-47.0); Hemoglobin 11.3 GM/DL (12.0-16.0); Immature Granulocytes % 0.3 %; Immature Granulocytes Absolute 0.01 #; Lymphocytes # 1.1 10*3/uL (1.4-4.0); Lymphocytes % 34.8 % (21.3-54.2); Mean Corpuscular Volume 100.6 FL (87-102); Mean Platelet Volume 11.3 FL (9.6-12.0); Monocytes % 15.9 % (1.7-12.7); Neutrophils % 43.2 % (38.7-73.9); Platelet Count 87 T/CUMM (130-400); Red Blood Count 3.62 MC/CUMM (3.8-5.5); Red Cell Distribution Width 14.4 % (9.3-17.3); White Blood Count 3.3 T/CUMM (4-12)
[2019-04-15 06:07] LABS: Calcium 9.5 MG/DL (8.5-10.1); Osmolality,Calculated 281.4 MOS/KG (273-304); Risk Ratio 2.62; VLDL CHOLESTEROL 14.8 MG/DL
[2019-04-15 06:09] LABS: Band Neutrophils 4 % (0-10); Eosinophils 6 % (0-10); Lymphocytes 34 % (20-55); Myelocytes 1 %; Segmented Neutrophils 48 % (50-85); Total Cells Counted 100
[2019-04-15 06:10] LABS: Anisocytosis 1+; Ovalocytes 1+; Platelet Estimate Decreased; Tear Drop Cells 1+
[2019-04-15] MEDS: DORZOLAMIDE/TIMOLOL OPH SOLN 10 ML BOTTLE BOTH EYES SCH ×2 (08:38→22:22)
[2019-04-15] MEDS: ASPIRIN EC 81 MG TABLET PO SCH (08:38)
[2019-04-15] MEDS: AMIODARONE 200 MG TABLET PO SCH (08:38)
[2019-04-15] MEDS: GABAPENTIN 300 MG CAPSULE PO SCH ×2 (08:38→22:18)
[2019-04-15] MEDS: SEVELAMER CARBONATE 800 MG TABLET PO SCH ×3 (08:38→22:18)
[2019-04-15] MEDS: CINACALCET 30 MG TABLET PO SCH (08:38)
[2019-04-15] MEDS: ALLOPURINOL 100 MG TABLET PO SCH (08:38)
[2019-04-15] MEDS: SIMVASTATIN 20 MG TABLET PO SCH (08:38)
[2019-04-15] MEDS: INSULIN REGULAR 100 UNIT/ML SUBCUT SCH ×4 (08:38→22:15)
[2019-04-15] MEDS: LIDOCAINE 5% PATCH TRANSDERM SCH (13:03)
[2019-04-15] MEDS: TRAVOPROST 0.004% OPH SOLN 2.5 ML BOTTLE BOTH EYES SCH (22:22)
[2019-04-16] MEDS: LIDOCAINE 5% PATCH TRANSDERM SCH ×3 (01:58→21:45)
[2019-04-16 05:52] LABS: Basophils % 0.6 % (0.0-0.8); Eosinophils # 0.2 10*3/uL (0.0-0.87); Eosinophils % 5.6 % (0.00-10.9); Hematocrit 35.7 VOL% (35.7-47.0); Hemoglobin 11.1 GM/DL (12.0-16.0); Immature Granulocytes % 0.3 %; Immature Granulocytes Absolute 0.01 #; Lymphocytes # 1.1 10*3/uL (1.4-4.0); Lymphocytes % 32.7 % (21.3-54.2); Mean Corpuscular HGB Conc 31.1 GM/DL (32-36); Mean Corpuscular Volume 100.6 FL (87-102); Mean Platelet Volume 10.8 FL (9.6-12.0); Monocytes % 13.2 % (1.7-12.7); Neutrophils % 47.6 % (38.7-73.9); Platelet Count 100 T/CUMM (130-400); Red Blood Count 3.55 MC/CUMM (3.8-5.5); Red Cell Distribution Width 14.3 % (9.3-17.3); White Blood Count 3.4 T/CUMM (4-12)
[2019-04-16 06:17] LABS: Calcium 8.8 MG/DL (8.5-10.1); Osmolality,Calculated 292.1 MOS/KG (273-304)
[2019-04-16] MEDS: INSULIN REGULAR 100 UNIT/ML SUBCUT SCH ×4 (08:21→21:46)
[2019-04-16] MEDS: DORZOLAMIDE/TIMOLOL OPH SOLN 10 ML BOTTLE BOTH EYES SCH ×2 (09:51→21:44)
[2019-04-16] MEDS: GABAPENTIN 300 MG CAPSULE PO SCH ×2 (09:52→21:45)
[2019-04-16] MEDS: SEVELAMER CARBONATE 800 MG TABLET PO SCH ×3 (09:52→21:45)
[2019-04-16] MEDS: METOPROLOL SUCCINATE XL 25 MG TABLET PO SCH (09:52)
[2019-04-16] MEDS: ASPIRIN EC 81 MG TABLET PO SCH (09:52)
[2019-04-16] MEDS: SIMVASTATIN 20 MG TABLET PO SCH (09:52)
[2019-04-16] MEDS: ALLOPURINOL 100 MG TABLET PO SCH (09:52)
[2019-04-16] MEDS: CINACALCET 30 MG TABLET PO SCH (09:58)
[2019-04-16] MEDS ORDERED: TUBERCULIN SKIN TEST 0.1 ML SYRINGE INTRADERM ONE (18:01)
[2019-04-16] MEDS: TRAVOPROST 0.004% OPH SOLN 2.5 ML BOTTLE BOTH EYES SCH (21:44)
[2019-04-17 06:28] LABS: Basophils % 0.9 % (0.0-0.8); Eosinophils # 0.2 10*3/uL (0.0-0.87); Eosinophils % 5.5 % (0.00-10.9); Hemoglobin 11.5 GM/DL (12.0-16.0); Immature Granulocytes % 0.6 %; Immature Granulocytes Absolute 0.02 #; Lymphocytes # 1.1 10*3/uL (1.4-4.0); Mean Corpuscular HGB Conc 31.1 GM/DL (32-36); Mean Corpuscular Volume 100.5 FL (87-102); Mean Platelet Volume 11.1 FL (9.6-12.0); Platelet Count 101 T/CUMM (130-400); Red Blood Count 3.68 MC/CUMM (3.8-5.5); Red Cell Distribution Width 14.4 % (9.3-17.3); White Blood Count 3.3 T/CUMM (4-12)
[2019-04-17 07:01] LABS: Calcium 8.1 MG/DL (8.5-10.1); Osmolality,Calculated 292.3 MOS/KG (273-304)
[2019-04-17] MEDS: INSULIN REGULAR 100 UNIT/ML SUBCUT SCH ×4 (08:36→21:11)
[2019-04-17] MEDS ORDERED: HEPARIN/NACL 0.9% 2 UNITS/ML 500 ML IV ONE (09:22)
[2019-04-17] MEDS ORDERED: ISOPROTERENOL 1 MG/5 ML VIAL IV ONE (09:22)
[2019-04-17] MEDS ORDERED: LIDOCAINE 1% 20 ML VIAL ONE (09:22)
[2019-04-17] MEDS ORDERED: HEPARIN/NACL 0.9% 2 UNITS/ML 1,000 ML IV ONE (09:53)
[2019-04-17] MEDS ORDERED: HEPARIN DRIP 0 UNITS/0 ML PREMIX IV ONE (09:56)
[2019-04-17] MEDS: ASPIRIN EC 81 MG TABLET PO SCH (11:15)
[2019-04-17] MEDS: DORZOLAMIDE/TIMOLOL OPH SOLN 10 ML BOTTLE BOTH EYES SCH ×2 (11:15→21:12)
[2019-04-17] MEDS: LIDOCAINE 5% PATCH TRANSDERM SCH ×2 (11:15→21:12)
[2019-04-17] MEDS: ALLOPURINOL 100 MG TABLET PO SCH (11:16)
[2019-04-17] MEDS: SEVELAMER CARBONATE 800 MG TABLET PO SCH ×3 (11:16→21:10)
[2019-04-17] MEDS: CINACALCET 30 MG TABLET PO SCH (11:16)
[2019-04-17] MEDS: GABAPENTIN 300 MG CAPSULE PO SCH ×2 (11:16→21:10)
[2019-04-17] MEDS: METOPROLOL SUCCINATE XL 25 MG TABLET PO SCH (11:16)
[2019-04-17] MEDS: SIMVASTATIN 20 MG TABLET PO SCH (11:33)
[2019-04-17] MEDS ORDERED: SEVOFLURANE 1 UNIT/15 MINUTE INH ONE (13:49)
[2019-04-17] MEDS ORDERED: HEPARIN 10,000 UNIT/10 ML VIAL ONE (13:49)
[2019-04-17] MEDS ORDERED: PROPOFOL 200 MG/20 ML VIAL IV ONE (13:49)
[2019-04-17] MEDS ORDERED: ePHEDrine 50 MG/ML AMP ONE (13:50)
[2019-04-17] MEDS ORDERED: SODIUM CHLORIDE 0.9% 250 ML IV ONE (13:50)
[2019-04-17] MEDS ORDERED: ETOMIDATE 40 MG/20 ML VIAL IV ONE (13:50)
[2019-04-17] MEDS ORDERED: ONDANSETRON 4 MG/2 ML VIAL ONE (13:50)
[2019-04-17] MEDS ORDERED: fentaNYL 100 MCG/2 ML VIAL ONE (13:50)
[2019-04-17] MEDS ORDERED: SIMVASTATIN 20 MG TABLET PO SCH (21:00)
[2019-04-17] MEDS: TRAVOPROST 0.004% OPH SOLN 2.5 ML BOTTLE BOTH EYES SCH (21:12)
[2019-04-18 04:57] LABS: Basophils % 0.7 % (0.0-0.8); Eosinophils # 0.2 10*3/uL (0.0-0.87); Eosinophils % 4.7 % (0.00-10.9); Hematocrit 39.4 VOL% (35.7-47.0); Hemoglobin 11.9 GM/DL (12.0-16.0); Immature Granulocytes % 0.2 %; Immature Granulocytes Absolute 0.01 #; Lymphocytes # 1.1 10*3/uL (1.4-4.0); Lymphocytes % 27.7 % (21.3-54.2); Mean Corpuscular HGB Conc 30.2 GM/DL (32-36); Mean Corpuscular Volume 101.5 FL (87-102); Mean Platelet Volume 11.2 FL (9.6-12.0); Neutrophils % 53.7 % (38.7-73.9); Platelet Count 104 T/CUMM (130-400); Red Blood Count 3.88 MC/CUMM (3.8-5.5); Red Cell Distribution Width 14.3 % (9.3-17.3)
[2019-04-18 05:44] LABS: Calcium 8.2 MG/DL (8.5-10.1); Osmolality,Calculated 280.7 MOS/KG (273-304)
[2019-04-18 05:47] LABS: Microcytosis Slight; Ovalocytes Slight; Platelet Estimate Decreased
[2019-04-18] MEDS: INSULIN REGULAR 100 UNIT/ML SUBCUT SCH (07:52)
[2019-04-18] MEDS: CINACALCET 30 MG TABLET PO SCH (08:39)
[2019-04-18] MEDS: ASPIRIN EC 81 MG TABLET PO SCH (08:40)
[2019-04-18] MEDS: ALLOPURINOL 100 MG TABLET PO SCH (08:40)
[2019-04-18] MEDS: DORZOLAMIDE/TIMOLOL OPH SOLN 10 ML BOTTLE BOTH EYES SCH (08:40)
[2019-04-18] MEDS: SEVELAMER CARBONATE 800 MG TABLET PO SCH (08:40)
[2019-04-18] MEDS: GABAPENTIN 300 MG CAPSULE PO SCH (08:40)
[2019-04-18] MEDS: METOPROLOL SUCCINATE XL 25 MG TABLET PO SCH (08:40)
[2019-04-18] MEDS: LIDOCAINE 5% PATCH TRANSDERM SCH (08:41)
[2019-04-18 12:11] VITALS: BP 109/53
== END 2019-04-18 13:45 | disposition swing bed (61) | DRG 273 ==
LOC: EDBD → EDUNIT# → N.EDINP 13:57 → N.ED 13:57 → N.EDINP 18:24 → N.TELEN 18:31
PROVIDERS: ADMIT Internal Medicine; ATTEND Internal Medicine

== ENCOUNTER 2021-07-14 08:10 | Inpatient (IN) ==
[2021-07-14 09:36] LABS: Basophils % 0.5 % (0.0-0.8); Eosinophils # 0.1 10*3/uL (0.0-0.87); Eosinophils % 3.5 % (0.00-10.9); Hematocrit 37.2 VOL% (35.7-47.0); Hemoglobin 11.3 GM/DL (12.0-16.0); Immature Granulocytes % 0.5 %; Immature Granulocytes Absolute 0.02 #; Lymphocytes # 1.2 10*3/uL (1.4-4.0); Lymphocytes % 30.3 % (21.3-54.2); Mean Corpuscular HGB Conc 30.4 GM/DL (32-36); Mean Corpuscular Volume 102.8 FL (87-102); Mean Platelet Volume 11.9 FL (9.6-12.0); Monocytes % 11.4 % (1.7-12.7); Neutrophils % 53.8 % (38.7-73.9); Platelet Count 118 T/CUMM (130-400); Red Blood Count 3.62 MC/CUMM (3.8-5.5); Red Cell Distribution Width 14.8 % (9.3-17.3)
[2021-07-14 09:42] LABS: INR 1.1; PT Patient Result 11.9 SECS (10.5-12.0); Partial Thromboplastin Time 20.8 SECS (23.8-32.1)
[2021-07-14 09:52] LABS: Albumin 3.2 G/DL (3.4-5.0); Bilirubin,Total 0.7 MG/DL (0.20-1.00); Calcium 10.5 MG/DL (8.5-10.1); Osmolality,Calculated 295.4 MOS/KG (273-304); Potassium 4.5 MMOL/L (3.5-5.1)
[2021-07-14] MEDS ORDERED: ACETAMINOPHEN 325 MG TABLET PO PRN (10:45)
[2021-07-14] MEDS ORDERED: ONDANSETRON 4 MG/2 ML VIAL IV PRN (10:45)
[2021-07-14] MEDS ORDERED: ALUMINUM/MAGNES/SIMETH MAX STR 30 ML UDCUP PO PRN (10:45)
[2021-07-14] MEDS ORDERED: GLUCAGON 1 MG VIAL IM PRN ×2 (10:45→11:17)
[2021-07-14] MEDS ORDERED: hydrALAZINE 20 MG/1 ML VIAL IV PRN (10:45)
[2021-07-14] MEDS ORDERED: DEXTROSE 50% 25 GM/50 ML SYRINGE IV PRN (10:51)
[2021-07-14] MEDS ORDERED: SODIUM CHLORIDE 0.9% 1,000 ML IV SCH (11:00)
[2021-07-14] MEDS: HEPARIN 5,000 UNIT/1 ML VIAL SUBCUT SCH ×2 (11:16→23:04)
[2021-07-14] MEDS ORDERED: DEXTROSE 50% 25 GM/50 ML VIAL IV PRN (11:17)
[2021-07-14] MEDS ORDERED: traMADol 50 MG TABLET PO PRN (11:27)
[2021-07-14] MEDS: INSULIN LISPRO 100 UNIT/ML SUBCUT SCH ×3 (12:05→20:29)
[2021-07-14] MEDS: CALCIUM ACETATE 667 MG CAPSULE PO SCH (17:41)
[2021-07-14] MEDS: SIMVASTATIN 20 MG TABLET PO SCH (20:27)
[2021-07-14] MEDS: DORZOLAMIDE/TIMOLOL OPH SOLN 10 ML BOTTLE BOTH EYES SCH (20:27)
[2021-07-14] MEDS: TRAVOPROST 0.004% OPH SOLN 2.5 ML BOTTLE BOTH EYES SCH (20:27)
[2021-07-15] MEDS: INSULIN LISPRO 100 UNIT/ML SUBCUT SCH ×4 (07:39→20:42)
[2021-07-15] MEDS: GABAPENTIN 300 MG CAPSULE PO SCH (09:50)
[2021-07-15] MEDS: METOPROLOL SUCCINATE XL 25 MG TABLET PO SCH (09:50)
[2021-07-15] MEDS: ASPIRIN CHEW 81 MG TABLET PO SCH (09:50)
[2021-07-15] MEDS: allopurinoL 100 MG TABLET PO SCH (09:51)
[2021-07-15] MEDS: DOCUSATE SODIUM 100 MG CAPSULE PO PRN (09:51)
[2021-07-15] MEDS: LORATADINE 10 MG TABLET PO SCH (09:51)
[2021-07-15] MEDS: PANTOPRAZOLE 40 MG TABLET PO SCH (09:51)
[2021-07-15] MEDS: DORZOLAMIDE/TIMOLOL OPH SOLN 10 ML BOTTLE BOTH EYES SCH ×2 (09:52→20:42)
[2021-07-15] MEDS: CALCIUM ACETATE 667 MG CAPSULE PO SCH ×3 (09:52→16:01)
[2021-07-15] MEDS: HEPARIN 5,000 UNIT/1 ML VIAL SUBCUT SCH ×2 (10:05→23:07)
[2021-07-15] MEDS ORDERED: HEPARIN 10,000 UNIT/10 ML VIAL IV PRN (12:35)
[2021-07-15] MEDS: SIMVASTATIN 20 MG TABLET PO SCH (20:40)
[2021-07-15] MEDS: TRAVOPROST 0.004% OPH SOLN 2.5 ML BOTTLE BOTH EYES SCH (20:42)
[2021-07-16 06:07] LABS: Basophils % 0.6 % (0.0-0.8); Eosinophils # 0.1 10*3/uL (0.0-0.87); Eosinophils % 2.9 % (0.00-10.9); Hematocrit 31.5 VOL% (35.7-47.0); Hemoglobin 9.5 GM/DL (12.0-16.0); Immature Granulocytes % 0.3 %; Immature Granulocytes Absolute 0.01 #; Lymphocytes # 1.5 10*3/uL (1.4-4.0); Lymphocytes % 42.1 % (21.3-54.2); Mean Corpuscular HGB Conc 30.2 GM/DL (32-36); Mean Platelet Volume 10.8 FL (9.6-12.0); Monocytes % 14.9 % (1.7-12.7); Neutrophils % 39.2 % (38.7-73.9); Platelet Count 119 T/CUMM (130-400); Red Cell Distribution Width 14.8 % (9.3-17.3); White Blood Count 3.5 T/CUMM (4-12)
[2021-07-16 06:20] LABS: Albumin 2.5 G/DL (3.4-5.0); Bilirubin,Total 1.1 MG/DL (0.20-1.00); Calcium 9.6 MG/DL (8.5-10.1); Osmolality,Calculated 290.8 MOS/KG (273-304); Potassium 4.2 MMOL/L (3.5-5.1); Total Protein 5.5 G/DL (6.4-8.2)
[2021-07-16] MEDS: GABAPENTIN 300 MG CAPSULE PO SCH (08:29)
[2021-07-16] MEDS: CALCIUM ACETATE 667 MG CAPSULE PO SCH ×3 (08:29→17:21)
[2021-07-16] MEDS: PANTOPRAZOLE 40 MG TABLET PO SCH (08:29)
[2021-07-16] MEDS: ASPIRIN CHEW 81 MG TABLET PO SCH (08:29)
[2021-07-16] MEDS: DORZOLAMIDE/TIMOLOL OPH SOLN 10 ML BOTTLE BOTH EYES SCH ×2 (08:30→21:49)
[2021-07-16] MEDS: MULTIVITAMIN LIQUID (CENTRUM) 60 ML BOTTLE PO SCH (08:30)
[2021-07-16] MEDS: METOPROLOL SUCCINATE XL 25 MG TABLET PO SCH (08:31)
[2021-07-16] MEDS: LORATADINE 10 MG TABLET PO SCH (08:31)
[2021-07-16] MEDS: allopurinoL 100 MG TABLET PO SCH (08:31)
[2021-07-16] MEDS: INSULIN LISPRO 100 UNIT/ML SUBCUT SCH ×4 (10:43→21:49)
[2021-07-16] MEDS: HEPARIN 5,000 UNIT/1 ML VIAL SUBCUT SCH (14:57)
[2021-07-16] MEDS: SIMVASTATIN 20 MG TABLET PO SCH (21:48)
[2021-07-16] MEDS: TRAVOPROST 0.004% OPH SOLN 2.5 ML BOTTLE BOTH EYES SCH (21:49)
[2021-07-17] MEDS: HEPARIN 5,000 UNIT/1 ML VIAL SUBCUT SCH ×3 (00:26→23:38)
[2021-07-17 08:22] LABS: Basophils % 0.5 % (0.0-0.8); Eosinophils # 0.1 10*3/uL (0.0-0.87); Eosinophils % 3.5 % (0.00-10.9); Hemoglobin 10.8 GM/DL (12.0-16.0); Immature Granulocytes % 0.3 %; Immature Granulocytes Absolute 0.01 #; Lymphocytes # 1.3 10*3/uL (1.4-4.0); Lymphocytes % 34.3 % (21.3-54.2); Mean Corpuscular Volume 104.3 FL (87-102); Mean Platelet Volume 10.7 FL (9.6-12.0); Monocytes % 16.1 % (1.7-12.7); Neutrophils % 45.3 % (38.7-73.9); Platelet Count 124 T/CUMM (130-400); Red Blood Count 3.45 MC/CUMM (3.8-5.5); Red Cell Distribution Width 14.6 % (9.3-17.3); White Blood Count 3.7 T/CUMM (4-12)
[2021-07-17] MEDS: MULTIVITAMIN LIQUID (CENTRUM) 60 ML BOTTLE PO SCH (08:22)
[2021-07-17] MEDS: CALCIUM ACETATE 667 MG CAPSULE PO SCH ×3 (08:22→17:06)
[2021-07-17] MEDS: LORATADINE 10 MG TABLET PO SCH ×2 (08:23→20:56)
[2021-07-17] MEDS: ASPIRIN CHEW 81 MG TABLET PO SCH (08:23)
[2021-07-17] MEDS: DOCUSATE SODIUM 100 MG CAPSULE PO PRN ×2 (08:23→21:01)
[2021-07-17] MEDS: allopurinoL 100 MG TABLET PO SCH (08:23)
[2021-07-17] MEDS: INSULIN LISPRO 100 UNIT/ML SUBCUT SCH ×4 (08:23→21:02)
[2021-07-17] MEDS: METOPROLOL SUCCINATE XL 25 MG TABLET PO SCH (08:23)
[2021-07-17 08:39] LABS: Eosinophils 7 % (0-10); Hypochromasia 1+; Lymphocytes 41 % (20-55); Microcytosis 1+; Platelet Estimate Normal; Segmented Neutrophils 43 % (50-85); Total Cells Counted 100
[2021-07-17 08:42] LABS: Albumin 2.7 G/DL (3.4-5.0); Bilirubin,Total 0.4 MG/DL (0.20-1.00); Calcium 10.1 MG/DL (8.5-10.1); Potassium 4.4 MMOL/L (3.5-5.1)
[2021-07-17] MEDS: DORZOLAMIDE/TIMOLOL OPH SOLN 10 ML BOTTLE BOTH EYES SCH ×2 (10:02→20:58)
[2021-07-17] MEDS: PANTOPRAZOLE 40 MG TABLET PO SCH (10:03)
[2021-07-17] MEDS: GABAPENTIN 300 MG CAPSULE PO SCH (10:03)
[2021-07-17] MEDS: SIMVASTATIN 20 MG TABLET PO SCH (20:56)
[2021-07-17] MEDS: TRAVOPROST 0.004% OPH SOLN 2.5 ML BOTTLE BOTH EYES SCH (20:57)
[2021-07-18 05:45] LABS: Basophils % 0.6 % (0.0-0.8); Eosinophils # 0.1 10*3/uL (0.0-0.87); Eosinophils % 3.9 % (0.00-10.9); Hemoglobin 10.4 GM/DL (12.0-16.0); Immature Granulocytes % 0.3 %; Immature Granulocytes Absolute 0.01 #; Lymphocytes # 1.2 10*3/uL (1.4-4.0); Lymphocytes % 34.1 % (21.3-54.2); Mean Corpuscular HGB Conc 30.6 GM/DL (32-36); Mean Corpuscular Volume 102.1 FL (87-102); Mean Platelet Volume 10.8 FL (9.6-12.0); Monocytes % 17.9 % (1.7-12.7); Neutrophils % 43.2 % (38.7-73.9); Platelet Count 126 T/CUMM (130-400); Red Blood Count 3.33 MC/CUMM (3.8-5.5); Red Cell Distribution Width 14.4 % (9.3-17.3); White Blood Count 3.6 T/CUMM (4-12)
[2021-07-18 06:09] LABS: Albumin 2.5 G/DL (3.4-5.0); Bilirubin,Total 0.4 MG/DL (0.20-1.00); Calcium 9.7 MG/DL (8.5-10.1); Potassium 3.9 MMOL/L (3.5-5.1); Total Protein 5.7 G/DL (6.4-8.2)
[2021-07-18 06:28] LABS: Eosinophils 1 % (0-10); Lymphocytes 31 % (20-55); Ovalocytes Few; Platelet Estimate Adequate; Polychromasia Slight; Segmented Neutrophils 54 % (50-85); Total Cells Counted 100
[2021-07-18] MEDS: CALCIUM ACETATE 667 MG CAPSULE PO SCH ×3 (08:31→16:48)
[2021-07-18] MEDS: MULTIVITAMIN LIQUID (CENTRUM) 60 ML BOTTLE PO SCH (08:31)
[2021-07-18] MEDS: LORATADINE 10 MG TABLET PO SCH (08:31)
[2021-07-18] MEDS: ASPIRIN CHEW 81 MG TABLET PO SCH (08:31)
[2021-07-18] MEDS: GABAPENTIN 300 MG CAPSULE PO SCH (08:31)
[2021-07-18] MEDS: DORZOLAMIDE/TIMOLOL OPH SOLN 10 ML BOTTLE BOTH EYES SCH ×2 (08:31→21:17)
[2021-07-18] MEDS: PANTOPRAZOLE 40 MG TABLET PO SCH (08:32)
[2021-07-18] MEDS: allopurinoL 100 MG TABLET PO SCH (08:32)
[2021-07-18] MEDS: INSULIN LISPRO 100 UNIT/ML SUBCUT SCH ×4 (08:40→21:17)
[2021-07-18] MEDS: METOPROLOL SUCCINATE XL 25 MG TABLET PO SCH (08:41)
[2021-07-18] MEDS: HEPARIN 5,000 UNIT/1 ML VIAL SUBCUT SCH ×2 (11:43→21:17)
[2021-07-18] MEDS: SIMVASTATIN 20 MG TABLET PO SCH (21:13)
[2021-07-18] MEDS: DOCUSATE SODIUM 100 MG CAPSULE PO PRN (21:13)
[2021-07-18] MEDS: TRAVOPROST 0.004% OPH SOLN 2.5 ML BOTTLE BOTH EYES SCH (21:16)
[2021-07-19] MEDS: HEPARIN 5,000 UNIT/1 ML VIAL SUBCUT SCH ×3 (00:14→22:32)
[2021-07-19] MEDS: INSULIN LISPRO 100 UNIT/ML SUBCUT SCH ×3 (13:02→21:22)
[2021-07-19] MEDS: LORATADINE 10 MG TABLET PO SCH (13:05)
[2021-07-19] MEDS: ASPIRIN CHEW 81 MG TABLET PO SCH (13:05)
[2021-07-19] MEDS: MULTIVITAMIN LIQUID (CENTRUM) 60 ML BOTTLE PO SCH (13:05)
[2021-07-19] MEDS: DORZOLAMIDE/TIMOLOL OPH SOLN 10 ML BOTTLE BOTH EYES SCH ×2 (13:05→21:21)
[2021-07-19] MEDS: CALCIUM ACETATE 667 MG CAPSULE PO SCH ×2 (13:05→16:32)
[2021-07-19] MEDS: GABAPENTIN 300 MG CAPSULE PO SCH (13:06)
[2021-07-19] MEDS: PANTOPRAZOLE 40 MG TABLET PO SCH (13:06)
[2021-07-19] MEDS: allopurinoL 100 MG TABLET PO SCH (13:06)
[2021-07-19 13:16] LABS: Basophils % 0.8 % (0.0-0.8); Eosinophils # 0.1 10*3/uL (0.0-0.87); Eosinophils % 3.4 % (0.00-10.9); Hematocrit 36.5 VOL% (35.7-47.0); Hemoglobin 10.5 GM/DL (12.0-16.0); Lymphocytes # 1.5 10*3/uL (1.4-4.0); Lymphocytes % 42.3 % (21.3-54.2); Mean Corpuscular HGB Conc 28.8 GM/DL (32-36); Mean Corpuscular Volume 108.3 FL (87-102); Mean Platelet Volume 10.6 FL (9.6-12.0); Monocytes % 16.6 % (1.7-12.7); Neutrophils % 36.9 % (38.7-73.9); Platelet Count 114 T/CUMM (130-400); Red Blood Count 3.37 MC/CUMM (3.8-5.5); Red Cell Distribution Width 14.5 % (9.3-17.3); White Blood Count 3.6 T/CUMM (4-12)
[2021-07-19 13:45] LABS: Albumin 2.3 G/DL (3.4-5.0); Bilirubin,Total 0.65 MG/DL (0.20-1.00); Calcium 10.3 MG/DL (8.5-10.1); Total Protein 5.8 G/DL (6.4-8.2)
[2021-07-19 13:46] LABS: Osmolality,Calculated 282.7 MOS/KG (273-304); Potassium 4.3 MMOL/L (3.5-5.1)
[2021-07-19 14:08] LABS: Eosinophils 1 % (0-10); Lymphocytes 50 % (20-55); Segmented Neutrophils 47 % (50-85); Total Cells Counted 100
[2021-07-19 14:09] LABS: Anisocytosis 1+; Platelet Estimate Adequate
[2021-07-19] MEDS: TRAVOPROST 0.004% OPH SOLN 2.5 ML BOTTLE BOTH EYES SCH (21:21)
[2021-07-19] MEDS: SIMVASTATIN 20 MG TABLET PO SCH (21:21)
[2021-07-20 06:00] LABS: Basophils % 0.6 % (0.0-0.8); Eosinophils # 0.1 10*3/uL (0.0-0.87); Eosinophils % 4.2 % (0.00-10.9); Hematocrit 31.9 VOL% (35.7-47.0); Hemoglobin 9.7 GM/DL (12.0-16.0); Lymphocytes # 1.3 10*3/uL (1.4-4.0); Lymphocytes % 42.7 % (21.3-54.2); Mean Corpuscular HGB Conc 30.4 GM/DL (32-36); Mean Corpuscular Volume 102.2 FL (87-102); Mean Platelet Volume 11.5 FL (9.6-12.0); Monocytes % 15.9 % (1.7-12.7); Neutrophils % 36.6 % (38.7-73.9); Platelet Count 103 T/CUMM (130-400); Red Blood Count 3.12 MC/CUMM (3.8-5.5); Red Cell Distribution Width 14.3 % (9.3-17.3); White Blood Count 3.1 T/CUMM (4-12)
[2021-07-20 06:24] LABS: Eosinophils 4 % (0-10); Hypochromasia 1+; Lymphocytes 44 % (20-55); Microcytosis 1+; Platelet Estimate Decreased; Segmented Neutrophils 41 % (50-85); Total Cells Counted 100
[2021-07-20 06:32] LABS: Albumin 2.3 G/DL (3.4-5.0); Bilirubin,Total 0.9 MG/DL (0.20-1.00); Calcium 9.7 MG/DL (8.5-10.1); Osmolality,Calculated 286.5 MOS/KG (273-304); Potassium 4.5 MMOL/L (3.5-5.1); Total Protein 5.2 G/DL (6.4-8.2)
[2021-07-20] MEDS: INSULIN LISPRO 100 UNIT/ML SUBCUT SCH ×4 (07:42→22:19)
[2021-07-20] MEDS: ASPIRIN CHEW 81 MG TABLET PO SCH (08:46)
[2021-07-20] MEDS: DORZOLAMIDE/TIMOLOL OPH SOLN 10 ML BOTTLE BOTH EYES SCH ×2 (08:47→22:18)
[2021-07-20] MEDS: LORATADINE 10 MG TABLET PO SCH (08:47)
[2021-07-20] MEDS: allopurinoL 100 MG TABLET PO SCH (08:47)
[2021-07-20] MEDS: PANTOPRAZOLE 40 MG TABLET PO SCH (08:47)
[2021-07-20] MEDS: GABAPENTIN 300 MG CAPSULE PO SCH (08:47)
[2021-07-20] MEDS: MULTIVITAMIN LIQUID (CENTRUM) 60 ML BOTTLE PO SCH (08:52)
[2021-07-20] MEDS: CALCIUM ACETATE 667 MG CAPSULE PO SCH ×3 (08:53→17:48)
[2021-07-20] MEDS: HEPARIN 5,000 UNIT/1 ML VIAL SUBCUT SCH ×2 (11:31→22:19)
[2021-07-20] MEDS: SIMVASTATIN 20 MG TABLET PO SCH (22:18)
[2021-07-20] MEDS: TRAVOPROST 0.004% OPH SOLN 2.5 ML BOTTLE BOTH EYES SCH (22:18)
[2021-07-21] MEDS ORDERED: TUBERCULIN SKIN TEST 0.1 ML SYRINGE INTRADERM ONE (06:40)
[2021-07-21] MEDS: INSULIN LISPRO 100 UNIT/ML SUBCUT SCH ×6 (08:24→21:00)
[2021-07-21] MEDS: ASPIRIN CHEW 81 MG TABLET PO SCH (09:04)
[2021-07-21] MEDS: LORATADINE 10 MG TABLET PO SCH (09:05)
[2021-07-21] MEDS: allopurinoL 100 MG TABLET PO SCH (09:05)
[2021-07-21] MEDS: CALCIUM ACETATE 667 MG CAPSULE PO SCH ×3 (09:05→16:00)
[2021-07-21] MEDS: MULTIVITAMIN LIQUID (CENTRUM) 60 ML BOTTLE PO SCH (09:06)
[2021-07-21] MEDS: PANTOPRAZOLE 40 MG TABLET PO SCH (09:06)
[2021-07-21] MEDS: GABAPENTIN 300 MG CAPSULE PO SCH (09:06)
[2021-07-21] MEDS: METOPROLOL SUCCINATE XL 25 MG TABLET PO SCH (09:07)
[2021-07-21] MEDS: DORZOLAMIDE/TIMOLOL OPH SOLN 10 ML BOTTLE BOTH EYES SCH ×2 (09:08→20:58)
[2021-07-21] MEDS: DOCUSATE SODIUM 100 MG CAPSULE PO PRN (09:59)
[2021-07-21] MEDS: HEPARIN 5,000 UNIT/1 ML VIAL SUBCUT SCH (11:45)
[2021-07-21] MEDS: TRAVOPROST 0.004% OPH SOLN 2.5 ML BOTTLE BOTH EYES SCH (20:59)
[2021-07-21] MEDS: SIMVASTATIN 20 MG TABLET PO SCH (20:59)
[2021-07-22] MEDS: DOCUSATE SODIUM 100 MG CAPSULE PO PRN (00:06)
[2021-07-22] MEDS: HEPARIN 5,000 UNIT/1 ML VIAL SUBCUT SCH ×3 (00:55→22:40)
[2021-07-22] MEDS: INSULIN LISPRO 100 UNIT/ML SUBCUT SCH ×4 (07:55→22:07)
[2021-07-22] MEDS: GABAPENTIN 300 MG CAPSULE PO SCH (08:56)
[2021-07-22] MEDS: allopurinoL 100 MG TABLET PO SCH (08:56)
[2021-07-22] MEDS: LORATADINE 10 MG TABLET PO SCH (08:56)
[2021-07-22] MEDS: PANTOPRAZOLE 40 MG TABLET PO SCH (08:56)
[2021-07-22] MEDS: ASPIRIN CHEW 81 MG TABLET PO SCH (08:56)
[2021-07-22] MEDS: CALCIUM ACETATE 667 MG CAPSULE PO SCH ×3 (08:57→19:08)
[2021-07-22] MEDS: METOPROLOL SUCCINATE XL 25 MG TABLET PO SCH (08:57)
[2021-07-22] MEDS: DORZOLAMIDE/TIMOLOL OPH SOLN 10 ML BOTTLE BOTH EYES SCH ×3 (09:14→22:09)
[2021-07-22] MEDS: MULTIVITAMIN LIQUID (CENTRUM) 60 ML BOTTLE PO SCH (13:53)
[2021-07-22] MEDS: SIMVASTATIN 20 MG TABLET PO SCH (22:08)
[2021-07-22] MEDS: TRAVOPROST 0.004% OPH SOLN 2.5 ML BOTTLE BOTH EYES SCH (22:09)
[2021-07-23] MEDS: INSULIN LISPRO 100 UNIT/ML SUBCUT SCH (07:28)
[2021-07-23] MEDS: allopurinoL 100 MG TABLET PO SCH (08:48)
[2021-07-23] MEDS: PANTOPRAZOLE 40 MG TABLET PO SCH (08:48)
[2021-07-23] MEDS: DOCUSATE SODIUM 100 MG CAPSULE PO PRN (08:48)
[2021-07-23] MEDS: LORATADINE 10 MG TABLET PO SCH (08:48)
[2021-07-23] MEDS: ASPIRIN CHEW 81 MG TABLET PO SCH (08:48)
[2021-07-23] MEDS: GABAPENTIN 300 MG CAPSULE PO SCH (08:48)
[2021-07-23] MEDS: DORZOLAMIDE/TIMOLOL OPH SOLN 10 ML BOTTLE BOTH EYES SCH (08:58)
[2021-07-23] MEDS: CALCIUM ACETATE 667 MG CAPSULE PO SCH (09:07)
[2021-07-23] MEDS: METOPROLOL SUCCINATE XL 25 MG TABLET PO SCH (09:07)
[2021-07-23] MEDS: MULTIVITAMIN LIQUID (CENTRUM) 60 ML BOTTLE PO SCH (09:07)
[2021-07-23 11:27] VITALS: BP 110/40
== END 2021-07-23 11:56 | DRG 640 ==
LOC: N.EDINP 08:10 → N.ED 08:10 → SUATTDRO 10:45 → N.EDINP 15:26 → N.5E 15:28 → SUATTDRO 07-16 17:10
PROVIDERS: ADMIT Internal Medicine; ATTEND Internal Medicine

== ENCOUNTER 2021-11-22 19:26 | Inpatient (IN) ==
[2021-11-22 20:14] LABS: Arterial Base Excess iSTAT 2 MMOL/L (-2.5-2.5); Arterial Bicarbonate iSTAT 25.5 MMOL/L (20-26); Arterial O2 Saturation iSTAT 99 % (95-100); Arterial PCO2 iSTAT 34 MM HG (35-48); Arterial PO2 iSTAT 118 MM HG (80-95); Arterial Total CO2 iSTAT 26 MMO/L (23-27); Arterial pH iSTAT 7.486 (7.35-7.45)
[2021-11-22 20:51] LABS: Basophils % 0.1 % (0.0-0.8); Eosinophils # 0.1 10*3/uL (0.0-0.87); Eosinophils % 0.5 % (0.00-10.9); Hematocrit 35.5 VOL% (35.7-47.0); Hemoglobin 10.8 GM/DL (12.0-16.0); Immature Granulocytes % 1.2 %; Immature Granulocytes Absolute 0.13 #; Lymphocytes # 1.3 10*3/uL (1.4-4.0); Mean Corpuscular HGB Conc 30.4 GM/DL (32-36); Mean Corpuscular Volume 100.6 FL (87-102); Mean Platelet Volume 13.4 FL (9.6-12.0); Monocytes % 8.6 % (1.7-12.7); Neutrophils % 77.6 % (38.7-73.9); Platelet Count 183 T/CUMM (130-400); Red Blood Count 3.53 MC/CUMM (3.8-5.5); White Blood Count 10.9 T/CUMM (4-12)
[2021-11-22] MEDS ORDERED: ONDANSETRON 4 MG/2 ML VIAL IV ONE (20:57)
[2021-11-22] MEDS ORDERED: MORPHINE 2 MG/1 ML SYRINGE IV STA (20:57)
[2021-11-22 21:03] LABS: Platelet Estimate Decreased
[2021-11-22 21:04] LABS: INR 1.3; PT Patient Result 13.9 SECS (10.5-12.0)
[2021-11-22] MEDS ORDERED: cefTRIAXone 1,000 MG in SODIUM CHLORIDE 0.9% 100 ML IV STA (22:13)
[2021-11-23 00:55] LABS: Calcium 9.3 MG/DL (8.5-10.1)
[2021-11-23 00:56] LABS: Alanine Aminotransferase < 9 U/L (13-56); Albumin 1.5 G/DL (3.4-5.0); Alkaline Phosphatase 123 U/L (45-117); Aspartate Amino Transferase 44 U/L (0-37); Blood Urea Nitrogen 24 MG/DL (7-18); Estimated Glom Filtration Rate 12 ML/MIN; Glucose 129 MG/DL (74-106); Total Protein 6.1 G/DL (6.4-8.2)
[2021-11-23 00:57] LABS: Carbon Dioxide 24 MMOL/L (21-32); Osmolality,Calculated 280.7 MOS/KG (273-304); Potassium 3.5 MMOL/L (3.5-5.1); Sodium 138 MMOL/L (136-145)
[2021-11-23] MEDS ORDERED: ACETAMINOPHEN 325 MG TABLET PO PRN (01:17)
[2021-11-23] MEDS ORDERED: SIMETHICONE CHEW 125 MG TABLET PO PRN (01:17)
[2021-11-23] MEDS ORDERED: ONDANSETRON 4 MG/2 ML VIAL IV PRN (01:17)
[2021-11-23] MEDS ORDERED: GLUCAGON 1 MG VIAL IM PRN (01:17)
[2021-11-23] MEDS ORDERED: DEXTROSE 10% 250 ML BAG IV PRN (01:28)
[2021-11-23] MEDS ORDERED: AZITHROMYCIN INJ 500 MG in SODIUM CHLORIDE 0.9% 250 ML IV SCH (03:00)
[2021-11-23] MEDS: HEPARIN 5,000 UNIT/1 ML VIAL SUBCUT SCH ×2 (04:28→15:14)
[2021-11-23 04:36] LABS: Basophils % 0.1 % (0.0-0.8); Eosinophils % 0.3 % (0.00-10.9); Hematocrit 25.6 VOL% (35.7-47.0); Hemoglobin 7.8 GM/DL (12.0-16.0); Immature Granulocytes % 0.9 %; Immature Granulocytes Absolute 0.12 #; Lymphocytes % 7.6 % (21.3-54.2); Mean Corpuscular HGB Conc 30.5 GM/DL (32-36); Mean Platelet Volume 11.3 FL (9.6-12.0); Monocytes % 6.1 % (1.7-12.7); Platelet Count 192 T/CUMM (130-400); Red Blood Count 2.56 MC/CUMM (3.8-5.5); Red Cell Distribution Width 16.9 % (9.3-17.3); White Blood Count 13.6 T/CUMM (4-12)
[2021-11-23 05:03] LABS: Calcium 9.3 MG/DL (8.5-10.1); Potassium 3.2 MMOL/L (3.5-5.1)
[2021-11-23] MEDS: ALBUTEROL/IPRATROPIUM 3 ML NEB RESP TX SCH ×3 (07:17→20:02)
[2021-11-23] MEDS ORDERED: NON-FORMULARY MEDICATION (Lidocaine [Lidocaine Pain Relief] 4 % Adhesive Patch,Medicated) TOP SCH (09:00)
[2021-11-23] MEDS: LACTULOSE 20 GM/30 ML UDCUP PO SCH (09:26)
[2021-11-23] MEDS: DOCUSATE SODIUM 100 MG CAPSULE PO SCH ×2 (09:26→21:43)
[2021-11-23] MEDS: SEVELAMER CARBONATE 800 MG TABLET PO SCH ×3 (09:27→18:30)
[2021-11-23] MEDS: INSULIN REGULAR 100 UNIT/ML SUBCUT SCH ×4 (09:27→22:03)
[2021-11-23] MEDS: ASPIRIN CHEW 81 MG TABLET PO SCH (09:27)
[2021-11-23] MEDS: METOPROLOL SUCCINATE XL 25 MG TABLET PO SCH (09:28)
[2021-11-23] MEDS: allopurinoL 100 MG TABLET PO SCH (09:28)
[2021-11-23] MEDS: PANTOPRAZOLE 40 MG TABLET PO SCH (09:28)
[2021-11-23] MEDS: GABAPENTIN 300 MG CAPSULE PO SCH (09:28)
[2021-11-23] MEDS: MEGESTROL 40 MG TABLET PO SCH ×3 (09:29→21:44)
[2021-11-23] MEDS: MENTHOL/ZINC OXIDE OINT 71 GM JAR TOP SCH ×4 (11:43→21:44)
[2021-11-23] MEDS: DORZOLAMIDE/TIMOLOL OPH SOLN 10 ML BOTTLE BOTH EYES SCH ×2 (11:44→21:44)
[2021-11-23] MEDS ORDERED: cefTRIAXone 1,000 MG in SODIUM CHLORIDE 0.9% 100 ML IV SCH (21:00)
[2021-11-23] MEDS: SIMVASTATIN 20 MG TABLET PO SCH (21:43)
[2021-11-23] MEDS: MELATONIN 3 MG TABLET PO SCH (21:43)
[2021-11-23] MEDS: traMADol 50 MG TABLET PO PRN (21:44)
[2021-11-23] MEDS: TRAVOPROST 0.004% OPH SOLN 2.5 ML BOTTLE BOTH EYES SCH (22:03)
[2021-11-24] MEDS: ALBUTEROL/IPRATROPIUM 3 ML NEB RESP TX SCH ×4 (01:01→19:10)
[2021-11-24] MEDS ORDERED: AZITHROMYCIN 250 MG TABLET PO ONE (09:00)
[2021-11-24] MEDS: INSULIN REGULAR 100 UNIT/ML SUBCUT SCH ×4 (09:37→21:04)
[2021-11-24] MEDS: METOPROLOL SUCCINATE XL 25 MG TABLET PO SCH (09:38)
[2021-11-24] MEDS: PANTOPRAZOLE 40 MG TABLET PO SCH (09:38)
[2021-11-24] MEDS: GABAPENTIN 300 MG CAPSULE PO SCH (09:39)
[2021-11-24] MEDS: allopurinoL 100 MG TABLET PO SCH (09:39)
[2021-11-24] MEDS: ASPIRIN CHEW 81 MG TABLET PO SCH (09:39)
[2021-11-24] MEDS: HEPARIN 5,000 UNIT/1 ML VIAL SUBCUT SCH (09:40)
[2021-11-24] MEDS: MEGESTROL 40 MG TABLET PO SCH ×3 (09:41→21:04)
[2021-11-24] MEDS: DOCUSATE SODIUM 100 MG CAPSULE PO SCH ×2 (09:41→21:04)
[2021-11-24] MEDS: MENTHOL/ZINC OXIDE OINT 71 GM JAR TOP SCH ×4 (09:42→21:03)
[2021-11-24] MEDS: DORZOLAMIDE/TIMOLOL OPH SOLN 10 ML BOTTLE BOTH EYES SCH ×2 (09:43→21:04)
[2021-11-24] MEDS: SEVELAMER CARBONATE 800 MG TABLET PO SCH ×3 (09:45→17:43)
[2021-11-24] MEDS: traMADol 50 MG TABLET PO PRN ×2 (09:57→16:52)
[2021-11-24] MEDS ORDERED: LORazepam 0.5 MG TABLET PO PRN (14:42)
[2021-11-24] MEDS ORDERED: MORPHINE 10 MG/5 ML UDCUP PO PRN (14:43)
[2021-11-24] MEDS: MELATONIN 3 MG TABLET PO SCH (21:04)
[2021-11-24] MEDS: TRAVOPROST 0.004% OPH SOLN 2.5 ML BOTTLE BOTH EYES SCH (21:04)
[2021-11-24] MEDS: SIMVASTATIN 20 MG TABLET PO SCH (21:04)
[2021-11-25] MEDS: ALBUTEROL/IPRATROPIUM 3 ML NEB RESP TX SCH ×4 (06:49→19:38)
[2021-11-25] MEDS: INSULIN REGULAR 100 UNIT/ML SUBCUT SCH ×4 (10:30→21:45)
[2021-11-25] MEDS: MEGESTROL 40 MG TABLET PO SCH ×3 (10:31→22:03)
[2021-11-25] MEDS: ASPIRIN CHEW 81 MG TABLET PO SCH (10:32)
[2021-11-25] MEDS: SEVELAMER CARBONATE 800 MG TABLET PO SCH ×3 (10:32→16:58)
[2021-11-25] MEDS: allopurinoL 100 MG TABLET PO SCH (10:32)
[2021-11-25] MEDS: GABAPENTIN 300 MG CAPSULE PO SCH (10:32)
[2021-11-25] MEDS: METOPROLOL SUCCINATE XL 25 MG TABLET PO SCH (10:33)
[2021-11-25] MEDS: PANTOPRAZOLE 40 MG TABLET PO SCH (10:33)
[2021-11-25] MEDS: AZITHROMYCIN 250 MG TABLET PO SCH (10:33)
[2021-11-25] MEDS: LACTULOSE 20 GM/30 ML UDCUP PO SCH (10:34)
[2021-11-25] MEDS: DOCUSATE SODIUM 100 MG CAPSULE PO SCH ×2 (10:34→22:03)
[2021-11-25] MEDS: DORZOLAMIDE/TIMOLOL OPH SOLN 10 ML BOTTLE BOTH EYES SCH ×2 (10:35→22:02)
[2021-11-25] MEDS: MENTHOL/ZINC OXIDE OINT 71 GM JAR TOP SCH ×4 (10:35→22:01)
[2021-11-25] MEDS: traMADol 50 MG TABLET PO PRN ×2 (12:58→22:03)
[2021-11-25] MEDS: MELATONIN 3 MG TABLET PO SCH (22:02)
[2021-11-25] MEDS: SIMVASTATIN 20 MG TABLET PO SCH (22:03)
[2021-11-25] MEDS: TRAVOPROST 0.004% OPH SOLN 2.5 ML BOTTLE BOTH EYES SCH (22:04)
[2021-11-26] MEDS: ALBUTEROL/IPRATROPIUM 3 ML NEB RESP TX SCH ×5 (00:34→19:35)
[2021-11-26] MEDS: ASPIRIN CHEW 81 MG TABLET PO SCH (09:23)
[2021-11-26] MEDS: GABAPENTIN 300 MG CAPSULE PO SCH (09:23)
[2021-11-26] MEDS: allopurinoL 100 MG TABLET PO SCH (09:23)
[2021-11-26] MEDS: AZITHROMYCIN 250 MG TABLET PO SCH (09:23)
[2021-11-26] MEDS: MEGESTROL 40 MG TABLET PO SCH ×3 (09:23→21:18)
[2021-11-26] MEDS: SEVELAMER CARBONATE 800 MG TABLET PO SCH ×3 (09:23→16:06)
[2021-11-26] MEDS: PANTOPRAZOLE 40 MG TABLET PO SCH (09:23)
[2021-11-26] MEDS: MENTHOL/ZINC OXIDE OINT 71 GM JAR TOP SCH ×4 (09:25→22:56)
[2021-11-26] MEDS: DOCUSATE SODIUM 100 MG CAPSULE PO SCH ×2 (09:25→22:56)
[2021-11-26] MEDS: DORZOLAMIDE/TIMOLOL OPH SOLN 10 ML BOTTLE BOTH EYES SCH ×2 (09:26→21:18)
[2021-11-26] MEDS: METOPROLOL SUCCINATE XL 25 MG TABLET PO SCH (09:26)
[2021-11-26] MEDS: INSULIN REGULAR 100 UNIT/ML SUBCUT SCH ×4 (09:27→21:18)
[2021-11-26] MEDS: TRAVOPROST 0.004% OPH SOLN 2.5 ML BOTTLE BOTH EYES SCH (21:18)
[2021-11-26] MEDS: MELATONIN 3 MG TABLET PO SCH (22:56)
[2021-11-26] MEDS: SIMVASTATIN 20 MG TABLET PO SCH (22:56)
[2021-11-27] MEDS: ALBUTEROL/IPRATROPIUM 3 ML NEB RESP TX SCH ×2 (00:40→07:15)
[2021-11-27 07:36] VITALS: BP 152/96
[2021-11-27] MEDS: INSULIN REGULAR 100 UNIT/ML SUBCUT SCH ×2 (09:40→11:01)
[2021-11-27] MEDS: AZITHROMYCIN 250 MG TABLET PO SCH (10:45)
[2021-11-27] MEDS: MENTHOL/ZINC OXIDE OINT 71 GM JAR TOP SCH ×2 (10:45→12:33)
[2021-11-27] MEDS: ASPIRIN CHEW 81 MG TABLET PO SCH (10:45)
[2021-11-27] MEDS: GABAPENTIN 300 MG CAPSULE PO SCH (10:46)
[2021-11-27] MEDS: allopurinoL 100 MG TABLET PO SCH (10:46)
[2021-11-27] MEDS: METOPROLOL SUCCINATE XL 25 MG TABLET PO SCH (10:46)
[2021-11-27] MEDS: MEGESTROL 40 MG TABLET PO SCH (10:46)
[2021-11-27] MEDS: DORZOLAMIDE/TIMOLOL OPH SOLN 10 ML BOTTLE BOTH EYES SCH (10:52)
[2021-11-27] MEDS: DOCUSATE SODIUM 100 MG CAPSULE PO SCH (11:01)
[2021-11-27] MEDS: LACTULOSE 20 GM/30 ML UDCUP PO SCH (11:01)
[2021-11-27] MEDS: SEVELAMER CARBONATE 800 MG TABLET PO SCH ×2 (11:01→12:32)
[2021-11-27] MEDS: PANTOPRAZOLE 40 MG TABLET PO SCH (11:01)
[2021-11-27] MEDS ORDERED: TUBERCULIN SKIN TEST 0.1 ML SYRINGE INTRADERM ONE (11:04)
== END 2021-11-27 13:49 | disposition hospice, inpatient (51) | DRG 177 ==
LOC: EDUNIT# → EDBD → N.EDINP 19:26 → N.ED 19:26 → SUATTDRO 11-23 01:17 → N.3E 11-23 05:04 → SUATTDRO 11-23 08:38
PROVIDERS: ADMIT Internal Medicine Geriatric Medicine; ATTEND Internal Medicine Geriatric Medicine